=== PATIENT | male | born 1945 | race Caucasian/White ===

== ENCOUNTER → 2017-11-07 | Outpatient (CLI) | payer MEDICARE, BC, OTHER | END | disposition home or self-care (01) | LOC: PCVCIMAG 09:06 | DX: I10 Essential (primary) hypertension (principal); R07.2 Precordial pain; E66.9 Obesity, unspecified; E78.5 Hyperlipidemia, unspecified; G47.33 Obstructive sleep apnea (adult) (pediatric); R07.9 Chest pain, unspecified; R94.31 Abnormal electrocardiogram [ECG] [EKG]; Z87.891 Personal history of nicotine dependence; Z79.899 Other long term (current) drug therapy | CPT/HCPCS: 93005; 93325; 93351; G0463 ==

== ENCOUNTER → 2019-07-08 | Outpatient (CLI) | payer MEDICARE, BC | END | disposition home or self-care (01) | LOC: PCVCCLINIC 14:23 | PROVIDERS: ATTEND Internal Medicine | DX: I11.9 Hypertensive heart disease without heart failure (principal); E78.5 Hyperlipidemia, unspecified; G47.33 Obstructive sleep apnea (adult) (pediatric); J45.909 Unspecified asthma, uncomplicated; Z87.891 Personal history of nicotine dependence | CPT/HCPCS: 36415; 80061; 93005; G0463 ==

== ENCOUNTER → 2019-07-10 | Outpatient (CLI) | payer MEDICARE, BC ==
--- NOTE | 2019-07-10 17:44 | PCVCIMAG ---
APPROVED REPORT Study performed: 07/10/2019 12:52:55 EXAM: Comprehensive 2D, Doppler, and color-flow Echocardiogram Patient Location: Echo lab Status: routine BSA: 2.10 HR: 92 bpmBP: 118/76 mmHg Rhythm: NSR Other Information Study Quality: Adequate Risk Factors: Cardiac Risk Factors: HTN, Hyperlipidemia Indications Dyspnea Cardiomegaly 2D Dimensions IVSd: 14.91 (7-11mm) LVDd: 45.52 mm PWd: 14.57 (7-11mm)Ascending Ao: 41.33 (22-36mm) LVDs: 32.87 (25-40mm) Left Atrium: 50.92 (27-40mm) Aortic Root: 38.21 mm LV Single Plane 4CH: 60.12 % LV Single Plane 2CH: 58.07 % Biplane EF: 59.6 % Volumes Left Atrial Volume (Systole) Single Plane 4CH: 94.49 mLSingle Plane 2CH: 102.53 mL LA ESV Index: 51.00 mL/m2 Aortic Valve AoV Peak Armaan.: 1.81 m/s AO Peak Gr.: 13.06 mmHgLVOT Max P.03 mmHg LVOT Max V: 1.00 m/s AI Vmax: 4.53 m/s AI Jerome: 2.83 m/s2 AI PHT: 463.66 ms Mitral Valve E/A Ratio: 0.5 MV Decel. Time: 245.58 ms MV E Max Armaan.: 0.59 m/s MV A Armaan.: 1.09 m/s IVRT: 128.03 ms Pulmonary Valve PV Peak Armaan.: 1.14 m/sPV Peak Gr.: 5.23 mmHg Pulmonary Vein P Vein S: 0.22 m/sP Vein A: 0.35 m/s P Vein D: 0.28 m/sP Vein A Dur.: 169.6 msec P Vein S/D Ratio: 0.79 Tricuspid Valve TR Peak Armaan.: 2.75 m/s TR Peak Gr.: 30.33 mmHg Left Ventricle The left ventricle is normal size. There is normal LV segmental wall motion. Moderate concentric left ventricular hypertrophy. Left ventricular systolic function is normal. The left ventricular ejection fraction is within the normal range. LVEF is 55%. Mild diastolic dysfunction is present (impaired relaxation pattern). Right Ventricle The right ventricle is normal size. The right ventricular systolic function is normal. Atria Left atrium is severely dilated. The right atrium size is normal. Aortic Valve The aortic valve is mildly sclerotic. Mild aortic regurgitation. There is no aortic valvular stenosis. Mitral Valve Moderate posterior mitral annular calcification. There is no mitral valve regurgitation noted. No evidence of mitral valve stenosis. Tricuspid Valve The tricuspid valve is normal in structure. Mild tricuspid regurgitation with PAP of 35 mmHg. Pulmonic Valve The pulmonary valve is normal in structure. Trace pulmonic regurgitation. Great Vessels The aortic root is normal in size. The ascending aorta is mildly dilated (4.1cm) IVC is normal in size and collapses >50% with inspiration. Pericardium There is no pericardial effusion. There is no pleural effusion. <Conclusion> Left ventricular systolic function is normal. There is normal LV segmental wall motion. LVEF is 55%. Mild diastolic dysfunction The aortic valve is mildly sclerotic. Mild aortic regurgitation, no stenosis. Moderate posterior mitral annular calcification. No mitral valve regurgitation Mild tricuspid regurgitation with pulmonary artery pressure of 35 mmHg. The ascending aorta is mildly dilated (4.1cm) There is no pericardial effusion.
== END | disposition home or self-care (01) ==
LOC: PCVCIMAG 12:50
PROVIDERS: ATTEND Internal Medicine
DX: I08.2 Rheumatic disorders of both aortic and tricuspid valves (principal); Z87.891 Personal history of nicotine dependence
CPT/HCPCS: 93306